=== PATIENT | male | born 1935 | race Caucasian/White ===

== ENCOUNTER 2017-08-06 06:11 | Inpatient (IN) | payer OTHER, BC ==
[2017-08-04 15:36] VITALS: BMI 25.7
--- NOTE | 2017-08-06 07:06 | HP ---
Admitting History and Physical - Primary Care Physician PCP: Kalyan Valero - Admission Chief Complaint: Known infrarenal AAA History of Present Illness: Here today for scheduled/elective repair of his infrarenal AAA. His aneurysm has been under surveillance and the most recent U/S showed and increase in size 5.3cm compared to CTA 2016 which showed size 5.1cm History Source: Patient, Medical Record Limitations to Obtaining History: No Limitations - Past Medical History Cardiovascular: Yes: CAD, HTN, Hyperlipdemia, Other (Mild cardiomyopathy, COnduction abnormality) Gastrointestinal: Yes: GERD, Other (Pancreatic cancer) Heme/Onc: Yes: B12 Deficiency Musculoskeletal: Yes: Osteoarthritis - Past Surgical History Past Surgical History: Yes: Appendectomy, Cholecystectomy, Stent Additional Past Surgical History: Whipple Procedure - Advance Directives Advance Directives: Yes: Living Will, Health Care Proxy - Smoking History Smoking history: Former smoker Have you smoked in the past 12 months: No If you are a former smoker, when did you quit?: 2003 - Alcohol/Substance Use Hx Alcohol Use: Yes (OCC) History of Substance Use: reports: None - Social History ADL: Independent History of Recent Travel: No <Julio Gloria P - Last Filed: 08/06/17 07:21> Home Medications <Julio Gloria - Last Filed: 08/06/17 07:21> <Kelechi Enrique - Last Filed: 08/06/17 10:15> - Allergies Allergies/Adverse Reactions: Allergies Allergy/AdvReac Type Severity Reaction Status Date / Time granisetron [From Kytril] AdvReac Intermediate Elevated Verified 08/04/17 16:23 Blood Pressure - Home Medications Home Medications: Ambulatory Orders Aspirin [ASA -] 81 mg PO DAILY 02/16/16 Cyanocobalamin [Vitamin B12 -] 1,000 mcg PO DAILY 02/16/16 Multivitamins [Multivit ([facility] Formulary)] 1 tab PO DAILY 02/16/16 Omeprazole 20 mg PO DAILY 02/16/16 Acetaminophen [Tylenol .Regular Strength -] 650 mg PO Q4H PRN #0 tablet Nitroglycerin Sublingual [Nitrostat -] 0.4 mg SL Q5M PRN #0 tab 02/19/16 Atorvastatin Ca [Lipitor] 10 mg PO HS 08/04/17 Family Disease History - Family Disease History Family Disease History: Other: Father (pneumonia), Mother (stroke) <Julio Gloria P - Last Filed: 08/06/17 07:21> Review of Systems - Review of Systems Constitutional: reports: Malaise Eyes: reports: No Symptoms HENT: reports: No Symptoms Neck: reports: No Symptoms Respiratory: reports: No Symptoms Gastrointestinal: reports: No Symptoms Genitourinary: reports: No Symptoms Musculoskeletal: reports: No Symptoms, Other (Kyphosis) Integumentary: reports: No Symptoms Neurological: reports: No Symptoms Endocrine: reports: No Symptoms Hematology/Lymphatic: reports: No Symptoms Psychiatric: reports: No Symptoms <Julio Gloria P - Last Filed: 08/06/17 07:21> Physical Examination Vital Signs: Vital Signs Temperature 97.4 F L 08/06/17 06:46 Pulse Rate 68 08/06/17 06:46 Respiratory Rate 20 08/06/17 06:46 Blood Pressure 140/86 08/06/17 06:46 O2 Sat by Pulse Oximetry (%) 97 08/06/17 06:46 Constitutional: Yes: Well Nourished, No Distress, Calm Eyes: Yes: WNL, Conjunctiva Clear, EOM Intact HENT: Yes: WNL, Atraumatic, Normocephalic Neck: Yes: WNL, Supple, Trachea Midline Cardiovascular: Yes: WNL, Regular Rate and Rhythm Respiratory: Yes: WNL, Regular, CTA Bilaterally Gastrointestinal: Yes: WNL, Normal Bowel Sounds, Soft, Other (Negative bruit auscultated) ...Rectal Exam: Yes: Deferred Breast(s): Yes: WNL Musculoskeletal: Yes: WNL Extremities: Yes: WNL Edema: Yes Peripheral Pulses WNL: Yes Integumentary: Yes: WNL Neurological: Yes: WNL, Alert, Oriented ...Motor Strength: WNL Psychiatric: Yes: WNL, Alert, Oriented <Julio Gloria P - Last Filed: 08/06/17 07:21> Vital Signs: Vital Signs Temperature 97.4 F L 08/06/17 06:46 Pulse Rate 68 08/06/17 06:46 Respiratory Rate 20 08/06/17 06:46 Blood Pressure 140/86 08/06/17 06:46 O2 Sat by Pulse Oximetry (%) 97 08/06/17 06:46 <Kelechi Enrique - Last Filed: 08/06/17 10:15> Imaging - Results Cat Scan: Report Reviewed Ultrasound: Report Reviewed <Julio Gloria P - Last Filed: 08/06/17 07:21> Problem List - Problems (1) AAA (abdominal aortic aneurysm) without rupture Code(s): I71.4 - ABDOMINAL AORTIC ANEURYSM, WITHOUT RUPTURE <Julio Gloria - Last Filed: 08/06/17 07:21> Assessment/Plan NPO Type and screen 2 PRBC on-hold GI / DVT ppx <Julio Gloria P - Last Filed: 08/06/17 07:21> Slowly enlarging AAA now 5.3 cm. Plan endovascular repair with bifurcated endograft, percutaneous approach. Risks of procedure, including bleeding, infection, renal failure, open surgery discussed with patient <Kelechi Enrique - Last Filed: 08/06/17 10:15>
[2017-08-06] MEDS ORDERED: CEFAZOLIN 2 GM in DEXTROSE 5%-WATER - 100 ML IVPB ONE ×2 (07:24→14:01)
[2017-08-06] MEDS ORDERED: HEPARIN NA (PORCINE) 5,000 UNITS/ML 1ML VIAL ONE (07:44)
[2017-08-06] MEDS ORDERED: POVIDONE-IODINE OINTMENT 10% - 28.4 GM TUBE ONE (07:44)
[2017-08-06] MEDS ORDERED: ceFAZolin SODIUM 1 GM VIAL ONE (08:23)
[2017-08-06] MEDS ORDERED: MIDAZOLAM HCL 2 MG/2 ML SINGLE DOSE VIAL ONE ×2 (08:23→09:29)
[2017-08-06] MEDS ORDERED: ceFAZolin SODIUM 1 GM VIAL IVPB ONE (08:25)
[2017-08-06] MEDS ORDERED: LIDOCAINE HCL 1%, 10 MG/ML (20ML VIAL) ONE (08:34)
[2017-08-06] MEDS ORDERED: BUPIVACAINE HCL/PF 0.5% (5MG/ML) 10 ML VIAL ONE (08:35)
[2017-08-06] MEDS ORDERED: LIDOCAINE HCL 1%, 10 MG/ML (50 mL VIAL) IJ ONE (08:37)
[2017-08-06] MEDS ORDERED: BUPIVACAINE HCL/PF (5 MG/ML) 30 ML VIAL IJ ONE (08:37)
[2017-08-06] MEDS ORDERED: PROTAMINE SULFATE 50 MG/5 ML VIAL ONE (09:55)
--- NOTE | 2017-08-06 10:18 | OP ---
Operative Note - Note: Operative Date: 08/06/17 Pre-Operative Diagnosis: Abdominal aortic aneurysm Operation: Percutaneous repair abdominal aortic aneurysm with main body and 2 docking limbs. Aortogram Findings: Infrarenal AAA Implants: Medtronic Endurant stent graft Post-Operative Diagnosis: Same as Pre-op Surgeon: Kelechi Enrique Distance Education Faculty Liaison: Julio Gloria Anesthesiologist/CHIEF CONTROLLER: Anil Calvillo Anesthesia: Fractional Estimated Blood Loss (mls): 50
[2017-08-06] MEDS ORDERED: ACETAMINOPHEN 325 MG TABLET (FP) PO PRN (10:23)
[2017-08-06] MEDS ORDERED: NITROGLYCERIN SUBLINGUAL 1/150 0.4 MG TAB SL PRN ×2 (10:23→14:01)
[2017-08-06] MEDS ORDERED: oxyCODONE HCL 5 MG TABLET PO PRN ×2 (10:31→14:01)
[2017-08-06] MEDS ORDERED: HYDROmorphone HCL CARPU-JECT 1 MG/1 ML DISP.SYRIN IVPB PRN ×2 (10:31→14:01)
[2017-08-06] MEDS ORDERED: ZOLPIDEM TARTRATE 5 MG TABLET PO PRN ×2 (10:32→14:01)
[2017-08-06] MEDS ORDERED: D5-1/2NS+20 MEQ KCL - 20 MEQ/1,000 ML INFUS.BAG IV SCH (10:45)
--- NOTE | 2017-08-06 10:46 | SURG ---
Surgery Pants Closer Note Pants Closer: Julio Gloria PA-C Date of Service: 08/06/17 Diagnosis: Infrarenal abdominal aortic aneurysm Procedure: Percutaneous repair abdominal aortic aneurysm with main body and 2 docking limbs. Aortogram I was present for the entirety of the operative procedure. For further detail, please refer to operative report. Visit type - Case Type Case Type: Scheduled Admission - New patient This patient is new to me today: Yes Date on this admission: 08/06/17
[2017-08-06] MEDS ORDERED: HYDROmorphone HCL CARPU-JECT 2 MG/1 ML DISP.SYRIN ONE (14:27)
[2017-08-06] MEDS: D5-1/2NS+20 MEQ KCL - 20 MEQ/1,000 ML INFUS.BAG IV SCH ×2 (14:30→21:35)
--- NOTE | 2017-08-06 14:53 | OP ---
DATE OF OPERATION: 08/06/2017 SURGEON: Kelechi Enrique MD SANDSTONE INSPECTOR REPAIRER: Faizan. PROCEDURE: Percutaneous endovascular repair of abdominal aortic aneurysm with main body and 2 docking limbs. Aortogram. PREOPERATIVE DIAGNOSIS: Infrarenal abdominal aortic aneurysm. POSTOPERATIVE DIAGNOSIS: Infrarenal abdominal aortic aneurysm. ANESTHESIA: Fractional. ANESTHESIOLOGIST: Anil Duncan MD. OPERATIVE FINDINGS: There was an infrarenal abdominal aortic aneurysm with maximum diameter of approximately 5.3 cm. Iliac arteries were patent without significant stenosis. PROCEDURE IN DETAIL: Following routine patient identification, intravenous sedation was established. Both groins were prepped with ChloraPrep. Timeout was performed. Duplex imaging was used to identify the common femoral arteries on both sides which were free of atherosclerotic disease. Lidocaine 1% mixed with Marcaine 0.5% was infiltrated into the skin and subcutaneous tissues overlying the arteries. The right common femoral artery was cannulated with a micropuncture needle under ultrasound guidance and a microwire advanced proximally into the iliac artery. The needle was exchanged for a 5-Monegasque catheter and then a Freeman wire was advanced into the abdominal aorta. A 6-Monegasque sheath was exchanged over the wire. Double Perclose device was placed in the artery at 10 o'clock and 2 o'clock positions and then an 8-Monegasque sheath placed into the vessel. The left femoral artery was then accessed in an identical fashion with placement of double Perclose and an 8-Monegasque sheath. A wire and pigtail catheter were then advanced proximally into the suprarenal aorta. A Kandis wire was advanced through the aneurysm into the thoracic aorta. The patient was systemically heparinized. An 18-Monegasque sheath was placed into the right femoral artery and advanced under fluoroscopic guidance into the abdominal aorta. An aortogram was then performed with the power injector to identified the renal vessels. The Endurant main body stent graft was prepared with a 28-mm neck and advanced through the sheath and positioned at the level of the renal arteries. Magnified views with correction for parallax were obtained and then the main body was deployed in the infrarenal position without complication. The stent was opened down to the contralateral limb gait. Via the left femoral sheath, a wire and catheter were advanced into the left limb opening and the wire and catheter advanced into the suprarenal aorta. The pigtail catheter was then advanced over the wire and used to confirm intraluminal placement. Contrast injected through the left limb was used to kenn the bifurcation of the iliac artery using oblique views. The left introducer sheath which was 16-Monegasque was then exchanged over the wire into the left external iliac artery. The left docking limb with 14-mm diameter was then advanced and deployed without complication to and just proximal to the bifurcation of the left iliac. The remainder of the main body was then deployed and the pigtail catheter placed via the right sheath to obtain an angiogram and kenn the iliac on the right side. The right docking limb was then placed through the sheath without complication. It was an 18-mm limb. The Reliant balloon was then used to dilate at the proximal portion of the graft and at all the juncture points and distal end of both iliac stents. The pigtail catheter was replaced and a completion aortogram obtained which showed good flow through the stent graft with no evidence of type 1 endoleak. The pigtail catheter was removed over the wire. The sheaths were then removed with tightening of the Perclose sutures to close the arteriotomies. Protamine was administered intravenously during the procedure. Pressure was applied to the groins until all bleeding stopped and the groin wounds were closed with Dermabond glue. The patient was then transported to the recovery room in stable condition. Saul [id number]
[2017-08-06] MEDS: CEFAZOLIN 1 GM PUSH 1 GM/10 ML DISP.SYRIN IVPUSH SCH (17:36)
[2017-08-06] MEDS ORDERED: CEFAZOLIN 1 GM PUSH 1 GM/10 ML DISP.SYRIN IVPUSH SCH (18:00)
[2017-08-06] MEDS: LIDOCAINE 5% TOPICAL PATCH TP SCH (21:33)
[2017-08-06] MEDS: ACETAMINOPHEN 325 MG TABLET (FP) PO PRN (21:33)
[2017-08-06] MEDS ORDERED: ATORVASTATIN CA 10 MG TABLET (FP) PO SCH ×2 (22:00)
[2017-08-06] MEDS ORDERED: LIDOCAINE PATCH REMOVAL MC SCH (22:00)
[2017-08-07] MEDS: CEFAZOLIN 1 GM PUSH 1 GM/10 ML DISP.SYRIN IVPUSH SCH (01:19)
[2017-08-07 05:56] VITALS: BP 138/75; PULSE 99; TEMP 98.6
[2017-08-07 07:36] LABS: HEMATOCRIT 40.5 % (35.4-49); HEMOGLOBIN 13.3 GM/dL (11.7-16.9); MCH 30.6 pg (25.7-33.7); MCHC 32.8 g/dl (32.0-35.9); MEAN CELL VOLUME 93.5 fl (80-96); MEAN PLT VOLUME 7.7 fl (7.5-11.1); PLATELET COUNT 160 K/MM3 (134-434); RBC 4.33 M/mm3 (4.00-5.60); RDW 14.6 % (11.9-15.9); WHITE BLOOD COUNT 17.5 K/mm3 (4.0-10.0)
[2017-08-07 08:17] LABS: ANION GAP 10 (8-16); BLOOD UREA NITROGEN 12 mg/dL (7-18); CALCIUM 8.5 mg/dL (8.5-10.1); CHLORIDE 103 mmol/L (98-107); CO2 24 mmol/L (21-32); CREATININE 0.9 mg/dL (0.7-1.3); GLUCOSE,RANDOM 113 mg/dL (74-106); SODIUM 137 mmol/L (136-145)
--- NOTE | 2017-08-07 08:49 | PN ---
Progress Note (short form) - Note Progress Note: POD 1 Required welsh catheter for urinary retention, C/O lower back pain Tm 101 - afeb now Abd soft Groins clean and dry WBC 17 K JOSE/Cr WNL Imp: Post-op inflammatory response with fever and leukocytosis Urinary retention Plan: D/C welsh, voiding trial Duplex renal arteries Home today if able to void
[2017-08-07] MEDS ORDERED: LIDOCAINE PATCH REMOVAL MC SCH ×2 (10:00→22:00)
[2017-08-07] MEDS ORDERED: PANTOPRAZOLE 20 MG TABLET (FP) PO SCH ×2 (10:00)
[2017-08-07] MEDS ORDERED: CLOPIDOGREL BISULFATE 75 MG TABLET (FP) PO SCH ×2 (10:00)
[2017-08-07] MEDS ORDERED: MULTIVITAMINS (DAILY MVI) TABLET (FP) PO SCH ×2 (10:00)
[2017-08-07] MEDS ORDERED: ENOXAPARIN NA (PORCINE) 40 MG/0.4 ML DISP.SYRIN SQ SCH ×2 (10:00)
[2017-08-07] MEDS ORDERED: ASPIRIN 81 MG CHEWABLE TABLETS PO SCH ×2 (10:00)
[2017-08-07] MEDS ORDERED: TAMSULOSIN HCL 0.4 MG CAP.ER.24H (FP) PO SCH (10:15)
[2017-08-07] MEDS: ACETAMINOPHEN 325 MG TABLET (FP) PO PRN (10:32)
[2017-08-07] MEDS: LIDOCAINE 5% TOPICAL PATCH TP SCH (10:33)
--- NOTE | 2017-08-07 12:18 | PN ---
Progress Note (short form) - Note Progress Note: Pt day#1 s/p AAA endovascular repair. Doing well, with no anesthetic issues. Continue current management
--- NOTE | 2017-08-07 17:04 | CON.GU ---
Consult - History of Present Illness History of Present Illness: 82 yo male s/p endovascular AAA repair now with urinary retention - History Source History Provided By: Patient Limitations to Obtaining History: No Limitations - Past Medical History Cardio/Vascular: Yes: CAD, HTN, Hyperlipdemia, Other (Mild cardiomyopathy, COnduction abnormality) Gastrointestinal: Yes: GERD, Other (Pancreatic cancer) Musculoskeletal: Yes: Osteoarthritis - Past Surgical History Past Surgical History: Yes: Appendectomy, Cholecystectomy, Stent - Alcohol/Substance Use Hx Alcohol Use: Yes (OCC) History of Substance Use: reports: None - Smoking History Smoking history: Former smoker Have you smoked in the past 12 months: No If you are a former smoker, when did you quit?: 2003 - Social History ADL: Independent History of Recent Travel: No Home Medications - Allergies Allergies/Adverse Reactions: Allergies Allergy/AdvReac Type Severity Reaction Status Date / Time granisetron [From Kytril] AdvReac Intermediate Elevated Verified 08/04/17 16:23 Blood Pressure - Home Medications Home Medications: Ambulatory Orders Aspirin [ASA -] 81 mg PO DAILY 02/16/16 Cyanocobalamin [Vitamin B12 -] 1,000 mcg PO DAILY 02/16/16 Multivitamins [Multivit ([facility] Formulary)] 1 tab PO DAILY 02/16/16 Omeprazole 20 mg PO DAILY 02/16/16 Acetaminophen [Tylenol .Regular Strength -] 650 mg PO Q4H PRN #0 tablet Nitroglycerin Sublingual [Nitrostat -] 0.4 mg SL Q5M PRN #0 tab 02/19/16 Atorvastatin Ca [Lipitor] 10 mg PO HS 08/04/17 Clopidogrel Bisulfate [Plavix -] 75 mg PO DAILY #30 tablet 08/07/17 Tamsulosin HCl [Flomax] 0.4 mg PO DAILY #30 cap.er.24h 08/07/17 Family Disease History - Family Disease History Family Disease History: Other: Father (pneumonia), Mother (stroke) Physical Exam- Vital Signs: Vital Signs Temperature 98.6 F 08/07/17 05:52 Pulse Rate 99 H 08/07/17 05:52 Respiratory Rate 18 08/07/17 09:00 Blood Pressure 138/75 08/07/17 05:52 O2 Sat by Pulse Oximetry (%) 95 08/07/17 09:00 Renal/: Yes: WNL Labs: CBC, BMP 08/07/17 05:35 08/07/17 05:35 Problem List - Problems (1) Urinary retention Assessment/Plan: start flomax, continue voidng trial Code(s): R33.9 - RETENTION OF URINE, UNSPECIFIED
== END 2017-08-07 13:23 | disposition home or self-care (01) | DRG 269 ==
LOC: JSAMEDAYSX 06:11 → EDSTATUS 10:00 → J4S 13:24
PROVIDERS: ADMIT Surgery; ATTEND Surgery
PROC: 04V03DZ Restriction of Abdominal Aorta with Intraluminal Device, Percutaneous Approach (ICD-10-PCS; principal; 2017-08-06 08:00)
PROC: 0T9B70Z Drainage of Bladder with Drainage Device, Via Natural or Artificial Opening (ICD-10-PCS; 2017-08-07)
DX: I71.4 Abdominal aortic aneurysm, without rupture (principal); I42.9 Cardiomyopathy, unspecified; N99.89 Other postprocedural complications and disorders of genitourinary system; R33.9 Retention of urine, unspecified; Y84.8 Other medical procedures as the cause of abnormal reaction of the patient, or of later complication, without mention of misadventure at the time of the procedure; E53.8 Deficiency of other specified B group vitamins; I10 Essential (primary) hypertension; E11.9 Type 2 diabetes mellitus without complications; E78.5 Hyperlipidemia, unspecified; K21.9 Gastro-esophageal reflux disease without esophagitis; Z95.5 Presence of coronary angioplasty implant and graft; Z87.891 Personal history of nicotine dependence
CPT/HCPCS: 36415; 76000-TC-FY; 80048; 85027; 86850; 86900; 86901; 86922; 87086; 93976; 94760; J1644

== ENCOUNTER 2017-08-08 15:55 | Emergency (ER) | payer OTHER, BC ==
--- NOTE | 2017-08-08 16:50 | PDOC ---
Rapid Medical Evaluation Time Seen by Provider: 08/08/17 16:50 Medical Evaluation: Allergies Allergy/AdvReac Type Severity Reaction Status Date / Time granisetron [From Kytril] AdvReac Intermediate Elevated Verified 08/04/17 16:23 Blood Pressure 08/08/17 16:50 I have performed a brief in-person evaluation of this patient. The patient presents with a chief complaint of: s/p elective surgery of infrarenal aneurysm [address] Enrique, here w/ back pain, constipation and no appetite. Other pmhx is HTN, HLD, CAD, GERD, pancreatic cancer Pertinent physical exam findings:Stable and well gretta w/ clear chest/lungs I have ordered the following:ekg/cxr/labs The patient will proceed to the ED for further evaluation.
[2017-08-08 17:01] VITALS: BP 136/69; PULSE 95; TEMP 97.1; BMI 25.7
--- NOTE | 2017-08-08 17:01 | PDOC ---
Attending Attestation - HPI HPI: 08/08/17 17:47 The patient is a 82 year old male with past medical history of hypertension, hyperlipidemia, [place] s/p stent (2000), s/p AAA repair done 08/06/16 who presents to the ED with complaints of dull lower back pain that began today. The patient states that his procedure went over well, despite post op urinary retention which required catheterization. The patient was able to urinate since removal of the catheter, had a normal kidney ultrasound, and was discharged home yesterday, 08/07/16. The patient made his vascular surgeon aware of his complaints and was instructed to come to the ED for a CT scan and further evaluation. The patient denies any urinary symptoms including hematuria, dysuria , frequency or urgency. He denies any fevers or chills. - Physicial Exam PE: 08/08/17 17:48 General Appearance: no acute distress, well nourished well developed, Head: Atraumatic, normocephalic Neck: Supple;No Nuchal rigidity Chest Wall: Nontender Cardiac: Regular rate and rhythm, no murmurs, no rubs, no gallops, Lungs: Clear to auscultation bilateral, good air movement bilaterally, Abdomen: Soft, nondistended, normal bowel sounds, nontender to palpation Extremities: Full range of motion to all extremities, no cyanosis, clubbing, or edema Skin: Ecchymosis to bilateral groin. Warm and dry, no rashes or lesions, no petechiae Neuro: AOX3; Cranial Nerves 2-12 grossly c intact, Strength intact to all extremities, Sensation intact to all extremities, gait normal - Medical Decision Making 08/08/17 17:48 Documentation prepared by Ivy Andrea, acting as medical administrative technician for Christ Oates MD. <Ivy Andrea - Last Filed: 08/08/17 17:48> - Resident Resident Name: Ghanshyam Tellez - ED Attending Attestation I have performed the following: I have examined & evaluated the patient, The case was reviewed & discussed with the resident, I agree w/resident's findings & plan, Exceptions are as noted - Medical Decision Making 08/08/17 20:37 No acute findings on CAT scan a laboratory analysis to account for patient's low back pain. Differential diagnosis includes musculoskeletal versus possibility of possibly early viral illness given slight malaise and body aches His PCP as seen and evaluated here in the emergency department. We have discussed his CAT scan findings of choledocholithiasis. He will arrange for follow-up as an outpatient Findings, need for follow-up, strict return instructions discussed with patient. <Christ Oates - Last Filed: 08/08/17 20:37>
--- NOTE | 2017-08-08 17:39 | PDOC ---
History of Present Illness <Christ Oates - Last Filed: 08/08/17 20:37> - History of Present Illness Initial Comments: Mr. Graces is an 82yo M who is POD#2 from a scheduled/elective percutaneous infrarenal AAA repair w/ Dr Enrique who presented with dull, nonradiating, gradually progressive lower back pain since the surgery. The procedure was complicated by post-op urinary retention for which he needed a catheter and completed voiding trial. He states that he is now urinating better , but endorses mild abdominal distension. He denies severe or sharp quality to the back pain, denies fevers, but had one episode of chills last night. Denies presyncope/syncope, dizziness. Denies neurological complaints. Denies redness around the area. <Ghanshyam Tellez - Last Filed: 08/08/17 22:41> - General Chief Complaint: Back Pain Stated Complaint: POST-OP COMPLICATIONS (PCP SENT) Time Seen by Provider: 08/08/17 16:50 Past History <Christ Oates - Last Filed: 08/08/17 20:37> - Past Medical History Cardiac Disorders: Yes ([place], AAA) COPD: No Diabetes: Yes HTN: Yes Hypercholesterolemia: Yes - Surgical History Appendectomy: Yes Cardiac Surgery: Yes (1 stent) Cholecystectomy: Yes - Immunization History Immunization Up to Date: Yes - Suicide/Smoking/Psychosocial Hx Smoking History: Former smoker Have you smoked in the past 12 months: No If you are a former smoker, when did you quit?: 2003 Information on smoking cessation initiated: No Hx Alcohol Use: No Drug/Substance Use Hx: No Substance Use Type: None Hx Substance Use Treatment: No <Ghanshyam Tellez - Last Filed: 08/08/17 22:41> - Past Medical History Allergies/Adverse Reactions: Allergies Allergy/AdvReac Type Severity Reaction Status Date / Time granisetron [From Kytril] AdvReac Intermediate Elevated Verified 08/08/17 16:57 Blood Pressure Home Medications: Ambulatory Orders Aspirin [ASA -] 81 mg PO DAILY 02/16/16 Cyanocobalamin [Vitamin B12 -] 1,000 mcg PO DAILY 02/16/16 Multivitamins [Multivit ([facility] Formulary)] 1 tab PO DAILY 02/16/16 Omeprazole 20 mg PO DAILY 02/16/16 Acetaminophen [Tylenol .Regular Strength -] 650 mg PO Q4H PRN #0 tablet Nitroglycerin Sublingual [Nitrostat -] 0.4 mg SL Q5M PRN #0 tab 02/19/16 Atorvastatin Ca [Lipitor] 10 mg PO HS 08/04/17 Clopidogrel Bisulfate [Plavix -] 75 mg PO DAILY #30 tablet 08/07/17 Tamsulosin HCl [Flomax] 0.4 mg PO DAILY #30 cap.er.24h 08/07/17 *Physical Exam - Vital Signs Last Vital Signs Temp Pulse Resp BP Pulse Ox 97.1 F L 95 H 18 136/69 95 08/08/17 16:51 08/08/17 16:51 08/08/17 16:51 08/08/17 16:51 08/08/17 16:51 <Christ Oates - Last Filed: 08/08/17 20:37> - Vital Signs Last Vital Signs Temp Pulse Resp BP Pulse Ox 97.1 F L 95 H 18 136/69 95 08/08/17 16:51 08/08/17 16:51 08/08/17 16:51 08/08/17 16:51 08/08/17 16:51 - Physical Exam Comments: GEN: AAOx3, NAD, Lying comfortably HEENT: PERRLA, EOMi CV: S1, S2, RRR LUNG: CTABL ABD: Soft, mildly distended, nontender, diffuse minimal discomfort MSK: No edema, no erythema. No point tenderness on the back, no signs of retroperitoneal bleed NEURO: CN 2-12 grossly intact <Ghanshyam Tellez - Last Filed: 08/08/17 22:41> ED Treatment Course - LABORATORY CBC & Chemistry Diagram: 08/08/17 17:40 08/08/17 17:40 - ADDITIONAL ORDERS Additional order review: Laboratory Results 08/08/17 08/08/17 08/08/17 18:00 17:40 17:40 PT with INR 13.40 H INR 1.19 H Sodium Potassium Chloride Carbon Dioxide Anion Gap BUN Creatinine Creat Clearance w eGFR Random Glucose Calcium Total Bilirubin AST ALT Alkaline Phosphatase Total Protein Albumin Urine Color Dkyellow Urine Appearance Clear Urine pH 5.0 Ur Specific [place] 1.024 Urine Protein 2+ H Urine Glucose (UA) Negative Urine Ketones Trace H Urine Blood 2+ H Urine Nitrite Negative Urine Bilirubin Negative Urine Urobilinogen 2.0 Ur Leukocyte Esterase Negative Urine WBC (Auto) 2 Urine RBC (Auto) 2 Urine Mucus Few Blood Type AB POSITIVE Antibody Screen Negative 08/08/17 17:40 PT with INR INR Sodium 139 Potassium 3.8 Chloride 105 Carbon Dioxide 27 Anion Gap 7 L BUN 15 D Creatinine 0.8 Creat Clearance w eGFR > 60 Random Glucose 103 Calcium 8.4 L Total Bilirubin 1.7 H D AST 28 D ALT 23 D Alkaline Phosphatase 71 D Total Protein 6.4 Albumin 3.2 L Urine Color Urine Appearance Urine pH Ur Specific [place] Urine Protein Urine Glucose (UA) Urine Ketones Urine Blood Urine Nitrite Urine Bilirubin Urine Urobilinogen Ur Leukocyte Esterase Urine WBC (Auto) Urine RBC (Auto) Urine Mucus Blood Type Antibody Screen 08/08/17 17:40 RBC 4.08 MCV 92.8 MCHC 33.5 RDW 14.1 MPV 7.5 Neutrophils % 77.1 D Lymphocytes % 10.9 D Monocytes % 11.7 H Eosinophils % 0.1 D Basophils % 0.2 - RADIOLOGY Radiology Studies Ordered: Category Date Time Status ABDOMEN/PELVIS CTA W/WO CONTR [CT] Stat CT Scan 08/08/17 19:25 Completed <Christ Oates - Last Filed: 08/08/17 20:37> - LABORATORY CBC & Chemistry Diagram: 08/08/17 17:40 08/08/17 17:40 <Ghanshyam Tellez - Last Filed: 08/08/17 22:41> Medical Decision Making - Medical Decision Making Pt is an 82yo M POD#2 from perc infrarenal AAA repair w/ Dr Enrique, presented with dull LBP. Since pt had post-op urinary retention, DDx could include urinary retention and bladder distension. Other ddx include pain from stent. Other ddx include stent infection or endoleak. --CBC, CMP --UA --Post-void ultrasound Dr Oates discussed the case w/ Dr Enrique. Will start w/ bladder u/s and if not retaining, will consider CTA w/ contrast to r/o leak 08/08/17 19:00 PV U/s was <50cc, unlikely retention. Labs wnl. Normal kidney function. Will proceed w/ CTA. If negative, will d/c with close followup w/ Dr Enrique. Case signed out to Dr. Oates. <Ghanshyam Tellez - Last Filed: 08/08/17 22:41> *DC/Admit/Observation/Transfer - Discharge Dispostion Admit: No <Christ Oates - Last Filed: 08/08/17 20:37> <Ghanshyam Tellez - Last Filed: 08/08/17 22:41> Diagnosis at time of Disposition: Back pain Qualifiers: Back pain location: low back pain Chronicity: unspecified Back pain laterality : right Sciatica presence: without sciatica Qualified Code(s): M54.5 - Low back pain - Discharge Dispostion Disposition: HOME - Referrals Referrals: Kalyan Valero MD [Primary Care Provider] - - Patient Instructions Printed Discharge Instructions: Low Back Pain Additional Instructions: Ice lower back 20 minutes on 20 minutes off. Take [id number] Tylenol as directed on package as needed for pain. Follow-up with your primary care provider next week. Return to the emergency department immediately for any fever severe worsening pain any abdominal pain weakness lightheadedness dizziness bleeding or for any concerns. - Post Discharge Activity
[2017-08-08 18:06] LABS: BASO % 0.2 % (0-2.0); EOS % 0.1 % (0-4.5); HEMATOCRIT 37.9 % (35.4-49); HEMOGLOBIN 12.7 GM/dL (11.7-16.9); LYMPH % 10.9 % (8-40); MCH 31.1 pg (25.7-33.7); MCHC 33.5 g/dl (32.0-35.9); MEAN CELL VOLUME 92.8 fl (80-96); MEAN PLT VOLUME 7.5 fl (7.5-11.1); MONO % 11.7 % (3.8-10.2); NEUT % 77.1 % (42.8-82.8); PLATELET COUNT 153 K/MM3 (134-434); RBC 4.08 M/mm3 (4.00-5.60); RDW 14.1 % (11.9-15.9); WHITE BLOOD COUNT 12.2 K/mm3 (4.0-10.0)
[2017-08-08 18:23] LABS: INR 1.19 (0.82-1.09); PROTHROMBIN TIME (PATIENT) 13.4 SEC (9.98-11.88)
[2017-08-08 18:32] LABS: URINE APPEARANCE CLEAR; URINE BILIRUBIN NEGATIVE (NEGATIVE); URINE BLOOD 2+ (NEGATIVE); URINE COLOR DKYELLOW; URINE GLUCOSE (UA) NEGATIVE (NEGATIVE); URINE KETONE TRACE (NEGATIVE); URINE LEUK ESTERASE NEGATIVE (NEGATIVE); URINE NITRITE NEGATIVE (NEGATIVE)
[2017-08-08 18:33] LABS: ALBUMIN 3.2 g/dl (3.4-5.0); ANION GAP 7 (8-16); BLOOD UREA NITROGEN 15 mg/dL (7-18); CALCIUM 8.4 mg/dL (8.5-10.1); CHLORIDE 105 mmol/L (98-107); CO2 27 mmol/L (21-32); CREATININE 0.8 mg/dL (0.7-1.3); GLUCOSE,RANDOM 103 mg/dL (74-106); POTASSIUM 3.8 mmol/L (3.5-5.1); SGOT/AST 28 U/L (15-37); SGPT/ALT 23 U/L (12-78); SODIUM 139 mmol/L (136-145)
[2017-08-08 18:35] LABS: ALK PHOS 71 U/L (45-117); BILIRUBIN,TOTAL 1.7 mg/dL (0.2-1.0); TOT PROT 6.4 g/dl (6.4-8.2)
[2017-08-08 18:36] LABS: URINE PROTEIN 2+ (NEGATIVE)
[2017-08-08 18:52] LABS: URINE MUCUS FEW
--- NOTE | 2017-08-11 21:51 | EKG ---
Test Reason : Blood Pressure : / mmHG Vent. Rate : 088 BPM Atrial Rate : 088 BPM P-R Int : 170 ms QRS Dur : 126 ms QT Int : 360 ms P-R-T Axes : 051 -41 067 degrees QTc Int : 435 ms NORMAL SINUS RHYTHM LEFT AXIS DEVIATION NON-SPECIFIC INTRA-VENTRICULAR CONDUCTION BLOCK ABNORMAL ECG WHEN COMPARED WITH ECG OF 17-FEB-2016 11:45, T WAVE VARIATION VENT. RATE HAS INCREASED Confirmed by VANNESSA LOVING, MAXWELL ([id number]) on 08/11/2017 9:51:39 PM Referred By: Confirmed By:MAXWELL HURD MD
== END 2017-08-08 21:05 | disposition home or self-care (01) ==
LOC: SUPCPDRO 15:55 → JER 15:55
DX: M54.5 Low back pain (principal); Z98.890 Other specified postprocedural states; I25.10 Atherosclerotic heart disease of native coronary artery without angina pectoris; I10 Essential (primary) hypertension; Z95.5 Presence of coronary angioplasty implant and graft; Z86.79 Personal history of other diseases of the circulatory system; E11.9 Type 2 diabetes mellitus without complications; E78.00 Pure hypercholesterolemia, unspecified; Z79.01 Long term (current) use of anticoagulants; I25.2 Old myocardial infarction
CPT/HCPCS: 36415; 71046-TC; 74174-TC; 80053; 81003; 81015; 85025; 85610; 86850; 86900; 86901; 87086; 93005; 93010; 99284-25

== ENCOUNTER 2020-06-22 13:08 | Day surgery (SDC) | payer OTHER, BC ==
[2020-06-22 13:27] VITALS: BMI 25.1
[2020-06-22] MEDS ORDERED: INDOMETHACIN 50 MG RECTAL SUPPOSITORY PR ONE (14:00)
[2020-06-22 17:20] VITALS: TEMP 96.9
[2020-06-22 20:19] VITALS: BP 153/87; PULSE 81
== END 2020-06-22 20:15 | disposition home or self-care (01) ==
LOC: JASU-ENDO 13:08
PROVIDERS: ATTEND Internal Medicine Gastroenterology
PROC: 0FC98ZZ Extirpation of Matter from Common Bile Duct, Via Natural or Artificial Opening Endoscopic (ICD-10-PCS; principal; 2020-06-22 13:30)
DX: K80.50 Calculus of bile duct without cholangitis or cholecystitis without obstruction (principal)
CPT/HCPCS: 36415; 76000-TC-FY; 82150; 93005; 93010

== ENCOUNTER 2020-08-23 04:42 | Day surgery (SDC) | payer OTHER, BC ==
[2020-08-21 11:28] VITALS: BMI 25.1
[~2020-08-23 04:42] MED LIST: BSS (NA/CA/MG/K) BALANCED SALT SOLUTION OPHTH SOLN 15 ML BOTTLE OS ONE; CHONDROITIN SU A/HYALUR SOD 1 KIT IO ONE; LIDOCAINE HCL 1% PRESERVATIVE FREE - 30ML VIAL IO ONE; PHENYLEPHRINE/KETOROLAC 4 ML VIAL IO ONE; POVIDONE-IODINE 5% OPHTHALMIC PREP 30 ML SOLUTION OS ONE; TETRACAINE 0.5% OPHTH SOLN 2 ML BOTTLE TP ONE
[2020-08-23] MEDS: TROPICAMIDE 1% OPHTH SOLN 15 ML BOTTLE ONE ×3 (07:10→07:30)
[2020-08-23] MEDS: KETOROLAC TROMETHAMINE 0.5% EYE DROP 1 DROP DROPS ONE ×3 (07:10→07:30)
[2020-08-23] MEDS ORDERED: CHONDROITIN SU A/HYALUR SOD 1 KIT ONE (07:10)
[2020-08-23] MEDS: CYCLOPENTOLATE HCL 1% OPHTH SOLN 2 ML BOTTLE ONE ×3 (07:10→07:30)
[2020-08-23] MEDS: OFLOXACIN 0.3% OPHTHALMIC SOLUTION 5 ML BOTTLE ONE ×3 (07:10→07:30)
[2020-08-23] MEDS ORDERED: VANCOMYCIN 500 MG VIAL (RESTRICTED TO ID ONLY) ONE (07:15)
[2020-08-23] MEDS ORDERED: PHENYLEPHRINE/KETOROLAC 4 ML VIAL IO SCH (07:30)
[2020-08-23] MEDS ORDERED: MIDAZOLAM HCL 2 MG/2 ML SINGLE DOSE VIAL ONE (08:06)
[2020-08-23] MEDS ORDERED: KETOROLAC TROMETHAMINE 30 MG/1 ML VIAL ONE (08:08)
[2020-08-23] MEDS ORDERED: TETRACAINE 0.5% OPHTH SOLN 2 ML BOTTLE TP ONE (08:08)
[2020-08-23] MEDS ORDERED: POVIDONE-IODINE 5% OPHTHALMIC PREP 30 ML SOLUTION OS ONE (08:09)
[2020-08-23] MEDS ORDERED: BSS (NA/CA/MG/K) BALANCED SALT SOLUTION OPHTH SOLN 15 ML BOTTLE OS ONE (08:16)
[2020-08-23] MEDS ORDERED: TRYPAN BLUE 0.5 ML DISP.SYRIN IO ONE (08:18)
[2020-08-23] MEDS ORDERED: LIDOCAINE HCL 1% PRESERVATIVE FREE - 30ML VIAL IO ONE (08:18)
[2020-08-23] MEDS ORDERED: CHONDROITIN SU A/HYALUR SOD 1 KIT IO ONE (08:18)
[2020-08-23] MEDS ORDERED: PHENYLEPHRINE/KETOROLAC 4 ML VIAL IO ONE (08:26)
[2020-08-23] MEDS ORDERED: ACETAMINOPHEN 325 MG TABLET (FP) PO PRN (08:54)
[2020-08-23] MEDS ORDERED: PHENYLEPHRINE 2.5% OPHTH SOLN 15 ML BOTTLE OP SCH (09:00)
[2020-08-23] MEDS ORDERED: KETOROLAC TROMETHAMINE 0.5% EYE DROP 1 DROP DROPS OP SCH (09:00)
[2020-08-23] MEDS ORDERED: OFLOXACIN 0.3% OPHTHALMIC SOLUTION 5 ML BOTTLE OP SCH (09:00)
[2020-08-23 10:42] VITALS: BP 125/74; PULSE 72; TEMP 97.8
== END 2020-08-23 09:50 | disposition home or self-care (01) ==
LOC: JASU-SURG 04:42
PROVIDERS: ATTEND Ophthalmology
PROC: 08RK3JZ Replacement of Left Lens with Synthetic Substitute, Percutaneous Approach (ICD-10-PCS; principal; 2020-08-23 08:00)
DX: H26.9 Unspecified cataract (principal)
CPT/HCPCS: J1097

== ENCOUNTER 2021-07-19 04:26 | Day surgery (SDC) | payer OTHER, BC ==
[2021-07-17 08:56] VITALS: BMI 28.3
[2021-07-19 08:58] VITALS: TEMP 97.5
[2021-07-19 09:38] VITALS: BP 135/83; PULSE 74
== END 2021-07-19 09:45 | disposition home or self-care (01) ==
LOC: JASU-ENDO 04:26
PROVIDERS: ATTEND Internal Medicine Gastroenterology
PROC: 0DJD8ZZ Inspection of Lower Intestinal Tract, Via Natural or Artificial Opening Endoscopic (ICD-10-PCS; 2021-07-19)
PROC: 0DJD8ZZ Inspection of Lower Intestinal Tract, Via Natural or Artificial Opening Endoscopic (ICD-10-PCS; principal; 2021-07-19 09:30)
DX: K62.5 Hemorrhage of anus and rectum (principal); K62.7 Radiation proctitis; K57.30 Diverticulosis of large intestine without perforation or abscess without bleeding; Z86.010 Personal history of colon polyps

== ENCOUNTER 2022-08-22 04:11 | Day surgery (SDC) | payer OTHER, BC ==
[2022-08-20 14:47] VITALS: BMI 25.7
[2022-08-22 12:05] VITALS: BP 156/85; PULSE 71; RESP 18
[2022-08-22 14:11] VITALS: TEMP 97.3
== END 2022-08-22 12:15 | disposition home or self-care (01) ==
LOC: JASU-ENDO 04:11
PROVIDERS: ATTEND Internal Medicine Gastroenterology
PROC: 0DJD8ZZ Inspection of Lower Intestinal Tract, Via Natural or Artificial Opening Endoscopic (ICD-10-PCS; principal; 2022-08-22 09:30)
DX: Z12.11 Encounter for screening for malignant neoplasm of colon (principal); K62.7 Radiation proctitis; K62.5 Hemorrhage of anus and rectum

== ENCOUNTER 2023-08-20 08:53 | Inpatient (IN) | payer OTHER, BC ==
[2023-08-20] MEDS ORDERED: ACETAMINOPHEN 325 MG TABLET (FP) ONE (09:51)
[2023-08-20] MEDS: ACETAMINOPHEN 325 MG TABLET (FP) PO ONE (09:52)
[2023-08-20 10:11] LABS: BASO % 0.4 % (0-2.0); EOS % 0.9 % (0-4.5); HEMATOCRIT 38.8 % (35.4-49); HEMOGLOBIN 13.4 GM/dL (11.7-16.9); LYMPH % 14.1 % (8-40); MCH 30.9 pg (25.7-33.7); MCHC 34.5 g/dl (32.0-35.9); MEAN CELL VOLUME 89.7 fl (80-96); MEAN PLT VOLUME 6.9 fl (7.5-11.1); MONO % 13.9 % (3.8-10.2); NEUT % 70.7 % (42.8-82.8); PLATELET COUNT 270 10^3/uL (134-434); RBC 4.33 M/mm3 (4.00-5.60); RDW 15.8 % (11.9-15.9); WHITE BLOOD COUNT 7.3 K/mm3 (4.0-10.0)
[2023-08-20 10:12] LABS: INR 1.22 (0.83-1.09); PROTHROMBIN TIME (PATIENT) 14.1 SEC (9.7-13.0)
[2023-08-20 10:24] LABS: POTASSIUM 4.1 mmol/L (3.5-5.1)
[2023-08-20 10:26] LABS: ALBUMIN 3.5 g/dl (3.4-5.0); BLOOD UREA NITROGEN 16.9 mg/dL (7-18)
[2023-08-20 10:35] LABS: BILIRUBIN,TOTAL 1.3 mg/dL (0.2-1)
[2023-08-20] MEDS: REMDESIVIR 200 MG in SODIUM CHLORIDE 250 ML IVPB ONE (12:12)
[2023-08-20] MEDS ORDERED: ALBUTEROL SO4 HFA INHALER IH PRN (17:16)
[2023-08-20] MEDS ORDERED: ACETAMINOPHEN 1000 MG/100 ML BAG IVPB PRN (17:37)
[2023-08-20] MEDS: LISINOPRIL 5 MG TABLET PO SCH (18:31)
[2023-08-20 19:07] VITALS: BMI 24.3
[2023-08-20] MEDS ORDERED: ZOLPIDEM TARTRATE 5 MG TABLET PO PRN (22:00)
[2023-08-20] MEDS: ATORVASTATIN CA 40 MG TABLET (FP) PO SCH (22:27)
[2023-08-21 08:55] LABS: BASO % 0.5 % (0-2.0); EOS % 0.9 % (0-4.5); HEMATOCRIT 36.2 % (35.4-49); HEMOGLOBIN 12.2 GM/dL (11.7-16.9); LYMPH % 14.9 % (8-40); MCH 30.5 pg (25.7-33.7); MCHC 33.6 g/dl (32.0-35.9); MEAN CELL VOLUME 90.8 fl (80-96); MONO % 13.2 % (3.8-10.2); NEUT % 70.5 % (42.8-82.8); PLATELET COUNT 252 10^3/uL (134-434); RBC 3.99 M/mm3 (4.00-5.60); RDW 15.8 % (11.9-15.9); WHITE BLOOD COUNT 8.5 K/mm3 (4.0-10.0)
[2023-08-21 09:18] LABS: POTASSIUM 4.1 mmol/L (3.5-5.1)
[2023-08-21 09:38] LABS: ALBUMIN 3.2 g/dl (3.4-5.0)
[2023-08-21 09:39] LABS: BLOOD UREA NITROGEN 17.8 mg/dL (7-18); CALCIUM 9.1 mg/dL (8.5-10.1)
[2023-08-21 09:40] LABS: MAGNESIUM 2.5 mg/dL (1.8-2.4); PHOSPHOROUS 3.1 mg/dL (2.5-4.9)
[2023-08-21 09:41] LABS: CREATININE 0.8 mg/dL (0.55-1.3)
[2023-08-21 09:42] LABS: TOT PROT 6.5 g/dl (6.4-8.2)
[2023-08-21] MEDS ORDERED: LISINOPRIL 5 MG TABLET PO SCH ×2 (10:00→17:25)
[2023-08-21] MEDS ORDERED: FLUTICASONE/UMECLIDIN/VILANTER(200-62.5-25 TRELEGY ELLIPTA) INAHLER IH SCH (10:00)
[2023-08-21] MEDS: LIDOCAINE 4% PATCH TP SCH (10:34)
[2023-08-21] MEDS: ASPIRIN 81 MG CHEWABLE TABLETS PO SCH (10:34)
[2023-08-21] MEDS: ENOXAPARIN NA (PORCINE) 40 MG/0.4 ML DISP.SYRIN SQ SCH (10:34)
[2023-08-21] MEDS: TAMSULOSIN HCL 0.4 MG CAP PO SCH (10:34)
[2023-08-21] MEDS: CLOPIDOGREL BISULFATE 75 MG TABLET (FP) PO SCH (10:34)
[2023-08-21] MEDS: FLUTICASONE/UMECLIDIN/VILANTER(200-62.5-25 TRELEGY ELLIPTA) INAHLER IH SCH (13:10)
[2023-08-21 14:05] VITALS: RESP 18
[2023-08-21] MEDS ORDERED: oxyCODONE HCL 5 MG TABLET PO PRN (17:22)
[2023-08-21] MEDS: LIDOCAINE PATCH REMOVAL MC SCH (22:58)
[2023-08-22 10:11] LABS: BASO % 0.3 % (0-2.0); EOS % 1.1 % (0-4.5); HEMATOCRIT 37.2 % (35.4-49); HEMOGLOBIN 12.5 GM/dL (11.7-16.9); LYMPH % 14.2 % (8-40); MCH 30.3 pg (25.7-33.7); MCHC 33.5 g/dl (32.0-35.9); MEAN CELL VOLUME 90.4 fl (80-96); MEAN PLT VOLUME 7.1 fl (7.5-11.1); MONO % 10.5 % (3.8-10.2); NEUT % 73.9 % (42.8-82.8); PLATELET COUNT 258 10^3/uL (134-434); RBC 4.11 M/mm3 (4.00-5.60); RDW 16.1 % (11.9-15.9)
[2023-08-22 10:40] LABS: BLOOD UREA NITROGEN 21.8 mg/dL (7-18); CALCIUM 9.4 mg/dL (8.5-10.1); MAGNESIUM 2.3 mg/dL (1.8-2.4)
[2023-08-22 10:43] LABS: CREATININE 0.9 mg/dL (0.55-1.3)
[2023-08-22 10:45] LABS: BILIRUBIN,TOTAL 2.4 mg/dL (0.2-1); TOT PROT 6.8 g/dl (6.4-8.2)
[2023-08-22 13:51] LABS: BF WBC & OTHER NUCLEATED CELLS 22860 /mm3; BODY FLUID MONOCYTE 13 %
[2023-08-22 13:52] LABS: CRYSTALS,SYNOVIAL FLUID NEGATIVE
[2023-08-22] MEDS: CEFAZOLIN 1 GM in DEXTROSE 5%-WATER - 50 ML IVPB SCH (16:27)
[2023-08-22] MEDS ORDERED: ceFAZolin SODIUM 1 GM VIAL ONE (16:45)
[2023-08-23 08:18] LABS: BASO % 0.2 % (0-2.0); EOS % 0.3 % (0-4.5); HEMATOCRIT 35.3 % (35.4-49); HEMOGLOBIN 11.8 GM/dL (11.7-16.9); LYMPH % 7.3 % (8-40); MCHC 33.3 g/dl (32.0-35.9); MEAN CELL VOLUME 90.2 fl (80-96); MEAN PLT VOLUME 7.2 fl (7.5-11.1); MONO % 10.4 % (3.8-10.2); NEUT % 81.8 % (42.8-82.8); PLATELET COUNT 246 10^3/uL (134-434); RBC 3.91 M/mm3 (4.00-5.60); RDW 15.9 % (11.9-15.9); WHITE BLOOD COUNT 14.1 K/mm3 (4.0-10.0)
[2023-08-23 08:39] LABS: POTASSIUM 4.3 mmol/L (3.5-5.1)
[2023-08-23 09:13] LABS: BLOOD UREA NITROGEN 23.4 mg/dL (7-18); CALCIUM 9.3 mg/dL (8.5-10.1); MAGNESIUM 2.3 mg/dL (1.8-2.4)
[2023-08-23 09:14] LABS: ALBUMIN 2.7 g/dl (3.4-5.0)
[2023-08-23 09:17] LABS: CREATININE 0.9 mg/dL (0.55-1.3); TOT PROT 6.4 g/dl (6.4-8.2)
[2023-08-23 09:20] LABS: BILIRUBIN,TOTAL 1.3 mg/dL (0.2-1)
[2023-08-23 12:54] VITALS: BP 112/67; PULSE 107; TEMP 97.8
== END 2023-08-23 14:41 | DRG 564 ==
LOC: JER 08:53 → JERBED 13:37 → J8W 17:21
PROVIDERS: ADMIT Internal Medicine; ATTEND Nurse Practitioner Family
PROC: 0S9C3ZZ Drainage of Right Knee Joint, Percutaneous Approach (ICD-10-PCS; principal; 2023-08-22)
DX: M25.461 Effusion, right knee (principal); U07.1 COVID-19; I42.9 Cardiomyopathy, unspecified; I69.351 Hemiplegia and hemiparesis following cerebral infarction affecting right dominant side; I25.10 Atherosclerotic heart disease of native coronary artery without angina pectoris; J44.9 Chronic obstructive pulmonary disease, unspecified; R33.9 Retention of urine, unspecified; E78.5 Hyperlipidemia, unspecified; K21.9 Gastro-esophageal reflux disease without esophagitis; W18.30XA Fall on same level, unspecified, initial encounter; Y92.098 Other place in other non-institutional residence as the place of occurrence of the external cause; Y99.9 Unspecified external cause status; Z85.07 Personal history of malignant neoplasm of pancreas; Z86.718 Personal history of other venous thrombosis and embolism; Z95.5 Presence of coronary angioplasty implant and graft
CPT/HCPCS: 0241U-QW; 36415; 70450-TC; 71045-TC-FY; 73502-TC-RT-FY; 73562-TC-RT-FY; 73590-TC-RT-FY; 80053; 82550; 83735; 84100; 84153; 85025; 85610; 85730; 86850; 86900; 86901; 87070; 87075; 87205; 87635; 89060; 93005; 93010; 93971-TC; 97116-GP; 97161-GP; 99285-25